=== PATIENT | female | born 1990 | race American Indian/Alaskan Native ===

== ENCOUNTER 2021-02-10 02:03 | Emergency (ER) | payer SELFPAY ==
[2021-02-10 02:21] VITALS: BP 133/79
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
== END 2021-02-10 03:47 | disposition home or self-care (01) ==
LOC: EDSEX 02:03 → ED 02:03
DX: S29.012A Strain of muscle and tendon of back wall of thorax, initial encounter (principal); S70.01XA Contusion of right hip, initial encounter; S40.011A Contusion of right shoulder, initial encounter; V87.7XXA Person injured in collision between other specified motor vehicles (traffic), initial encounter; Y93.89 Activity, other specified; Y92.488 Other paved roadways as the place of occurrence of the external cause; Y99.8 Other external cause status
CPT/HCPCS: 72070; 99283